=== PATIENT | female | born 1940 | race Caucasian/White ===

== ENCOUNTER 2016-11-07 10:43 | Day surgery (SDC) | payer OTHER ==
[~2016-11-07] VITALS: Ht 160 cm; Wt 87.0 kg
[~2016-11-07 10:43] MED LIST: ADVAIR 250/501 DISK IH; ADVAIR 500/501 DISK IH; ALBUTEROL17 GM; ALENDRONATE SOD70 MG; ALENDRONATE SOD70 MG PO; ALTERA NEBULIZ1 EACH MC; ASPIR 8181 M1 PO; ASPIRIN81 M1 PO; ASPIRIN81 M2 PO; ASTAXANTHIN4 MG PO; ATROVENT H200 INHALA IH; AZITHROMYCIN250 MG1 PO; Advair HFA 115/21 IH; Aspirin E.C. PO; CALCIUM CITRAT1 EA14 PO; CALCIUM CITRAT1 EAC1 PO; CLARITIN,ALAVAR10 MG PO; CO Q-1050 MG PO; COLCHICINE0.6 M1 PO; CURCUMIN; Combivent IH; DIOVAN HCT 11 TABLE1 PO; DIOVAN160 MG PO; DIOVAN40 MG PO; DIOVAN80 MG PO; DUONEB 2.5-0.5 M3 ML AEROSOL; FISH OIL CONC1 EACH PO; FISH OIL SOFTG1 EACH PO; FLOVENT 22120 INHALA IH; FUROSEMIDE20 MG PO; GLUCOPHAGE500 MG PO; GLUCOSAMINE &1 EAC1 PO; GLUCOSAMINE CH1 EAC4 PO; GLUCOSAMINE CH1 EACH; LASIX40 MG PO; LOPRESSOR25 MG PO; LOVASTATIN40 MG PO; MAGNESIUM250 MG PO; MULTIPLE VITAM1 EACH PO; MULTIVITAMIN1 EAC2 PO; MULTIVITAMINS1 EAC2 PO; NAPROSYN500 MG PO; NASACORT AQ16.5 GM; NASACORT AQ16.5 GM BOTH NARES; NASACORT AQ16.5 GM NS; NEURONTIN100 MG PO; NEURONTIN400 MG PO; NEXIUM40 MG PO; POTASSIUM GLUCO99 M1 PO; PRAVACHOL80 MG PO; PRAVASTATIN SOD20 MG PO; PRAVASTATIN SOD80 MG PO; PREDNISONE5 MG PO; PREDNISONE50 MG PO; PROAIR HFA8.5 GM; PROAIR HFA8.5 GM IH; PROBIOTIC1 EAC1 PO; PROBIOTIC1 EAC2 PO; PROVENTIL,2.5 MG/0.5; SINGULAIR10 MG PO; SPIRIVA RESPIMAT4 G1 IH; SYSTANE BALANCE10 ML OP; TRIAMTERENE-HC1 EAC1 PO; TUDORZA PRESS400 MCG; TUMERIC EXTRACT PO; TYLENOL EXTRA500 MG PO; ULORIC40 MG PO; VITAMIN B W/C1 EACH PO; VITAMIN D32000 UNI1 PO; Vitamin D PO; Zithromax PO; [UNRECOGNIZED DRUG - OTHER] PO; predniSONE PO
[2016-11-07 11:18] LABS: POINT-OF-CARE METER ID UU13113694
[2016-11-07 11:32] VITALS: BP 140/54
[2016-11-07 13:54] LABS: POINT-OF-CARE METER ID UU13113675; POINT-OF-CARE USER ID 515036437
[2016-11-07 14:27] VITALS: BP 137/60
[2016-11-07 15:17] VITALS: BP 141/53
== END 2016-11-07 15:23 | disposition home or self-care (01) ==
LOC: SDC
PROVIDERS: Orthopaedic Surgery
PROC: 0SBD0ZZ Excision of Left Knee Joint, Open Approach (ICD-10-PCS; principal; 2016-11-07)
DX: M67.462 Ganglion, left knee (principal); I10 Essential (primary) hypertension; E78.5 Hyperlipidemia, unspecified; K21.9 Gastro-esophageal reflux disease without esophagitis; J45.909 Unspecified asthma, uncomplicated; E11.9 Type 2 diabetes mellitus without complications; M79.7 Fibromyalgia; Z79.82 Long term (current) use of aspirin; Z79.84 Long term (current) use of oral hypoglycemic drugs
CPT/HCPCS: 82948; 88304; J0690; J2250; J2405; J3010

== ENCOUNTER → 2017-08-16 | Outpatient (CLI) | payer OTHER ==
[~2017-08-16] VITALS: Ht 161.3 cm; Wt 81.6 kg
[~2017-08-16] MED LIST changes: +GABAPENTIN300 MG PO
== END | disposition home or self-care (01) ==
LOC: AMB 10:08
PROVIDERS: Internal Medicine
DX: Z12.11 Encounter for screening for malignant neoplasm of colon (principal); Z86.010 Personal history of colon polyps; K57.30 Diverticulosis of large intestine without perforation or abscess without bleeding; D12.2 Benign neoplasm of ascending colon; D12.0 Benign neoplasm of cecum; D64.9 Anemia, unspecified; E78.5 Hyperlipidemia, unspecified; I10 Essential (primary) hypertension; Z86.000 Personal history of in-situ neoplasm of breast; Z88.8 Allergy status to other drugs, medicaments and biological substances
CPT/HCPCS: 82948; 88305; 93005

== ENCOUNTER 2017-11-15 16:06 | Observation (INO) | payer OTHER, BC ==
[~2017-11-15] VITALS: Ht 160 cm; Wt 86.3 kg
[~2017-11-15 16:06] MED LIST changes: -NASACORT AQ16.5 GM BOTH NARES; +NASACORT10.8 ML BOTH NARES
[2017-11-15 16:37] LABS: HEMATOCRIT 38.1 % (36.0-46.0); HEMOGLOBIN 12.5 G/DL (11.9-15.5); MCH 29.6 PG (29.0-34.0); MCHC 32.8 G/DL (30.0-36.0); MCV 90.1 FL (83-99); PLATELET COUNT 273 K/uL (156-360); RBC DIS.WIDTH-CV 14.6 % (11.8-14.6); RBC DIS.WIDTH-SD 47.6 % (39-53); RED BLOOD COUNT 4.23 M/uL (3.80-5.20); WHITE BLOOD COUNT 7.7 K/uL (4.1-10.2)
[2017-11-15 17:05] LABS: CHLORIDE 104 MEQ/L (99-109); GFR ESTIMATE (CALCULATED) 57 mL/min/; GLUCOSE 83 mg/dL (70-99); POTASSIUM 4.2 MEQ/L (3.7-5.4); SODIUM 139 MEQ/L (136-147); UREA NITROGEN (BUN) 19 mg/dL (9-23)
[2017-11-15 17:43] LABS: TROP-I INTERPRETATION NEGATIVE; TROPONIN-I 0.01 ng/mL (0.0-0.30)
[2017-11-15] MEDS ORDERED: GRALISE300 MG PO (19:15)
[2017-11-15] MEDS ORDERED: CYMBALTA30 MG PO (19:15)
[2017-11-15] MEDS ORDERED: NORITATE60 GM TP (19:16)
[2017-11-15] MEDS ORDERED: ATROVENT H200 INHALA IH (19:16)
[2017-11-15] MEDS ORDERED: ARTIFICIAL TEAR1510 BOTH EYES (19:16)
[2017-11-15] MEDS ORDERED: TURMERIC/CURCUMIN PO (19:25)
[2017-11-15 20:07] LABS: APPEARANCE CLEAR ((CLEAR)); BILIRUBIN NEGATIVE; BLOOD NEGATIVE; COLOR STRAW ((YELLOW)); GLUCOSE (STRIP) NEGATIVE; KETONES NEGATIVE; LEUKOCYTES NEGATIVE; NITRITE NEGATIVE; PROTEIN (STRIP) NEGATIVE; SPECIFIC GRAVITY 1.006 (1.000-1.030); UCUL ADDED? NO; UROBILINOGEN 0.2 MG/DL (0.2-1.0)
[2017-11-16 04:13] VITALS: BP 135/65
[2017-11-16 07:48] VITALS: BP 147/87
[2017-11-16 08:32] LABS: HDL CHOLESTEROL 46 MG/DL (Desirable>=50); LDL CHOLESTEROL 162 mg/dL (Desirable<100); NON-HDL CHOLESTEROL 236 mg/dL (Desirable<160); TOTAL CHOLESTEROL 282 mg/dL (Desirable<200); TRIGLYCERIDES 368 MG/DL (Normal: <150)
[2017-11-16 10:55] LABS: TROP-I INTERPRETATION NEGATIVE; TROPONIN-I 0.01 ng/mL (0.0-0.30)
[2017-11-16 12:10] VITALS: BP 142/68
[2017-11-16 13:05] LABS: HEMOGLOBIN A1c (GLYCOHEMOGLOB) 5.4 % (Below 5.7)
[2017-11-16 14:14] LABS: TROP-I INTERPRETATION NEGATIVE; TROPONIN-I < 0.01 ng/mL (0.0-0.30)
[2017-11-16 15:42] VITALS: BP 157/71
[2017-11-16 20:27] VITALS: BP 119/72
== END 2017-11-16 20:52 | disposition home or self-care (01) ==
LOC: EME 16:06 → EDOF 19:22 → ENRESERV 19:27 → 4SOUTH 21:33
PROVIDERS: Internal Medicine; Physician Assistant
DX: R27.0 Ataxia, unspecified (principal); G25.0 Essential tremor; R51 Headache; R07.89 Other chest pain; I42.2 Other hypertrophic cardiomyopathy; Z98.890 Other specified postprocedural states; I44.7 Left bundle-branch block, unspecified; G47.33 Obstructive sleep apnea (adult) (pediatric); I13.0 Hypertensive heart and chronic kidney disease with heart failure and stage 1 through stage 4 chronic kidney disease, or unspecified chronic kidney disease; E11.22 Type 2 diabetes mellitus with diabetic chronic kidney disease; I50.9 Heart failure, unspecified; N18.9 Chronic kidney disease, unspecified; E78.5 Hyperlipidemia, unspecified; R53.83 Other fatigue; J44.9 Chronic obstructive pulmonary disease, unspecified; E11.42 Type 2 diabetes mellitus with diabetic polyneuropathy; K21.9 Gastro-esophageal reflux disease without esophagitis; M10.9 Gout, unspecified; M19.90 Unspecified osteoarthritis, unspecified site; M81.0 Age-related osteoporosis without current pathological fracture; I44.2 Atrioventricular block, complete; Z86.19 Personal history of other infectious and parasitic diseases; M79.7 Fibromyalgia; Z85.820 Personal history of malignant melanoma of skin; Z96.652 Presence of left artificial knee joint; Z90.710 Acquired absence of both cervix and uterus; Z68.33 Body mass index [BMI] 33.0-33.9, adult; Z85.3 Personal history of malignant neoplasm of breast; Z88.1 Allergy status to other antibiotic agents; Z88.2 Allergy status to sulfonamides; Z88.8 Allergy status to other drugs, medicaments and biological substances; Z91.048 Other nonmedicinal substance allergy status; Z91.041 Radiographic dye allergy status; Z87.891 Personal history of nicotine dependence
CPT/HCPCS: 70450; 70551; 71046; 72141; 80048; 80061; 81003; 83036; 84484; 85027; 85610; 93005; 93880; 94640; 94799; 99281; 99285; G0378; J1644